=== PATIENT | female | born 1940 | race Caucasian/White ===

== ENCOUNTER 2019-04-29 20:59 | Emergency (ER) | payer OTHER ==
[2019-04-30] MEDS: traMADol 50 MG TAB PO (00:08)
[2019-04-30] MEDS: KETOROLAC 30 MG INJ IM (00:08)
== END 2019-04-30 02:13 | disposition home or self-care (01) ==
LOC: FTE 20:59
DX: S93.401A Sprain of unspecified ligament of right ankle, initial encounter (principal); E11.9 Type 2 diabetes mellitus without complications; I10 Essential (primary) hypertension; S70.01XA Contusion of right hip, initial encounter; W18.40XA Slipping, tripping and stumbling without falling, unspecified, initial encounter; Y92.9 Unspecified place or not applicable
CPT/HCPCS: 72170; 73510; 73610-RT; 96372; 99284-25